=== PATIENT | male | born 1935 | race Caucasian/White ===

== ENCOUNTER 2016-05-13 10:07 | Outpatient (RCR) | payer MEDICARE, BC ==
[2016-05-13] VITALS (9 sets, daily range): BP systolic 100–122; BP diastolic 43–66; PULSE 70–85; TEMP 97.4–98.5
[~2016-05-13 10:07] MED LIST: ARICEPT 5MG PO; ASPIRIN 81M81 MG/TA2 PO; CELEXA 20MG20 MG/TAB PO; DITROPAN 5MG TAB5 MG PO; MUCINEX D 600 M1 TER PO; MULTIPLE VITAMI1 CAP PO; MVI; NATURAL L-LYSI500 MG PO; NEXIUM 20MG20 MG PO; OSCAL 500 TAB500 MG PO; SAW PALMETTO 101 SGL PO; [UNRECOGNIZED DRUG - REMARK]; [UNRECOGNIZED DRUG - REMARK]; cholesterol meds
[2016-05-13 11:17] LABS: HEMATOCRIT 20.6 % (42.0-52.0); HEMOGLOBIN 6.8 g/dl (13.5-18.0)
== END 2016-05-13 16:07 | disposition home or self-care (01) ==
LOC: EUO 10:07
PROVIDERS: Internal Medicine
DX: C82.21 Follicular lymphoma grade III, unspecified, lymph nodes of head, face, and neck (principal)
CPT/HCPCS: J7050; P9016

== ENCOUNTER 2016-05-31 20:32 | Observation (INO) | payer MEDICARE, BC ==
[~2016-05-31] VITALS: Ht 152.4 cm; Wt 81.7 kg
[2016-05-31 21:20] LABS: MEAN CELL VOLUME 96 fl (80.0-100.0); MEAN CORPUSCULAR HGB CONC 34 g/dl (33.0-37.0); MEAN PLATELET VOLUME 9.6 fl (7.4-10.4); PLATELET COUNT 233 K/mm3 (130-400); REDCELL DISTRIBUTION WIDTH-CV 23.5 % (11.5-14.5); RETIC % 1.9 % (0.5-3.52); WHITE BLOOD COUNT 5.8 K/mm3 (4.8-10.8)
[2016-05-31 21:27] LABS: ADJUSTED CALCIUM 9.4 mg/dL (8.4-10.2); ALBUMIN 3.6 gm/dL (3.5-5.0); BILIRUBIN,TOTAL 0.8 mg/dL (0.0-1.0); CALCIUM 9.1 mg/dL (8.4-10.2); CREATININE, serum 0.7 mg/dL (0.66-1.25); POTASSIUM 4.1 mmol/L (3.4-5.0); TOTAL PROTEIN 5.8 gm/dL (6.4-8.2)
[2016-05-31 21:29] LABS: PH 5 (5-8); URINE APPEARANCE Hazy; URINE BACTERIA Rare /hpf; URINE BILIRUBIN Negative (NEGATIVE); URINE BLOOD 1+ (NEGATIVE); URINE COLOR Yellow; URINE GLUCOSE Negative (NEGATIVE); URINE KETONE Trace (NEGATIVE); URINE UROBILINOGEN >=4.0 mg/dL (NEGATIVE)
[2016-05-31 21:30] LABS: HEMOGLOBIN 7.1 g/dl (13.5-18.0); MEAN CORPUSCULAR HEMOGLOBIN 32 pg (27.0-31.0)
[2016-05-31 22:10] LABS: ANISOCYTOSIS 2+; BAND 19 % (0-10); METAMYELOCYTE 5 % (0-0); MYELOCYTE 3 % (0-0); NEUTROPHILS 33 % (42.0-75.2); TOTAL CELLS COUNTED 100
[2016-05-31 22:11] LABS: HYPOCHROMIA 2+; OVALOCYTES 1+; POLYCHROMASIA 1+
[2016-05-31 22:12] LABS: PLATELET ESTIMATE NORMAL (NORMAL)
[2016-05-31 22:13] LABS: ADD PATHOLOGY DIFF REVIEW YES
[2016-05-31 23:27] VITALS: BP 121/56; PULSE 77; TEMP 97.5
[2016-06-01] VITALS (11 sets, daily range): BP systolic 103–125; BP diastolic 28–75; PULSE 67–78; TEMP 79.8–98.3
[2016-06-01 08:45] LABS: PATHOLOGY DIFF REVIEW OK
[2016-06-01 09:28] LABS: MEAN CELL VOLUME 96 fl (80.0-100.0); MEAN CORPUSCULAR HGB CONC 33 g/dl (33.0-37.0); MEAN PLATELET VOLUME 9.3 fl (7.4-10.4); PLATELET COUNT 207 K/mm3 (130-400); RED BLOOD COUNT 2.94 M/mm3 (4.20-5.60); REDCELL DISTRIBUTION WIDTH-CV 21.6 % (11.5-14.5); WHITE BLOOD COUNT 5.9 K/mm3 (4.8-10.8)
[2016-06-01 09:34] LABS: ADD PATHOLOGY DIFF REVIEW NO; HEMATOCRIT 28.2 % (42.0-52.0); HEMOGLOBIN 9.4 g/dl (13.5-18.0); MEAN CORPUSCULAR HEMOGLOBIN 32 pg (27.0-31.0)
[2016-06-01 10:09] LABS: ANISOCYTOSIS 2+; BAND 8 % (0-10); BASOPHIL 1 % (0-2); EOSINOPHIL 2 % (0-4); METAMYELOCYTE 1 % (0-0); NEUTROPHILS 44 % (42.0-75.2); OVALOCYTES 1+; PLATELET ESTIMATE NORMAL (NORMAL); TOTAL CELLS COUNTED 100
[2016-06-01] MEDS ORDERED: CEFTIN500 MG PO (12:38)
== END 2016-06-01 14:18 | disposition home or self-care (01) ==
LOC: COL.ER 20:32 → MEDICAL 22:13
PROVIDERS: Family Medicine; Nurse Practitioner Family
DX: D64.89 Other specified anemias (principal); N39.0 Urinary tract infection, site not specified; B96.4 Proteus (mirabilis) (morganii) as the cause of diseases classified elsewhere; G31.83 Neurocognitive disorder with Lewy bodies; F02.80 Dementia in other diseases classified elsewhere, unspecified severity, without behavioral disturbance, psychotic disturbance, mood disturbance, and anxiety; R53.81 Other malaise; G47.33 Obstructive sleep apnea (adult) (pediatric); K21.9 Gastro-esophageal reflux disease without esophagitis; E78.5 Hyperlipidemia, unspecified; Z85.72 Personal history of non-Hodgkin lymphomas
CPT/HCPCS: G0378; G8978-GP; G8979-GP; J0696; J7030; P9016

== ENCOUNTER 2016-06-18 11:33 | Outpatient (RCR) | payer MEDICARE, BC ==
[~2016-06-18] VITALS: Ht 152.4 cm; Wt 77.3 kg
[2016-06-18] VITALS (11 sets, daily range): BP systolic 99–131; BP diastolic 56–84; PULSE 69–85; TEMP 97.2–98
[~2016-06-18 11:33] MED LIST changes: +CEFTIN500 MG PO
[2016-06-18 12:23] LABS: HEMATOCRIT 23.3 % (42.0-52.0); HEMOGLOBIN 7.8 g/dl (13.5-18.0)
[2016-06-19] MEDS ORDERED: AMOXICILLIN 8751 TAB PO (19:07)
== END 2016-06-18 17:41 | disposition home or self-care (01) ==
LOC: EUO 11:33
PROVIDERS: Internal Medicine
DX: C82.21 Follicular lymphoma grade III, unspecified, lymph nodes of head, face, and neck (principal)
CPT/HCPCS: J7050; P9016

== ENCOUNTER 2016-06-19 17:36 | Emergency (ER) | payer MEDICARE, BC ==
[~2016-06-19] VITALS: Ht 177.8 cm; Wt 84.1 kg
[2016-06-19 17:40] VITALS: TEMP 98.4
[2016-06-19 18:31] LABS: ADD PATHOLOGY DIFF REVIEW NO
[2016-06-19 18:38] LABS: INR 1.2 (0.8-3.0); PROTHROMBIN TIME 13.4 SECONDS (9.7-12.8)
[2016-06-19 18:39] LABS: HEMATOCRIT 26.5 % (42.0-52.0); HEMOGLOBIN 9.2 g/dl (13.5-18.0); MEAN CELL VOLUME 92 fl (80.0-100.0); MEAN CORPUSCULAR HEMOGLOBIN 32 pg (27.0-31.0); MEAN CORPUSCULAR HGB CONC 35 g/dl (33.0-37.0); MEAN PLATELET VOLUME 9.3 fl (7.4-10.4); PLATELET COUNT 218 K/mm3 (130-400); RED BLOOD COUNT 2.89 M/mm3 (4.20-5.60); WHITE BLOOD COUNT 4.5 K/mm3 (4.8-10.8)
[2016-06-19 18:46] LABS: ADJUSTED CALCIUM 9.6 mg/dL (8.4-10.2); ALANINE AMINOTRANSFERASE 68 U/L (21-72); ALBUMIN 3.4 gm/dL (3.5-5.0); ALKALINE PHOSPHATASE 118 U/L (50-136); ANION GAP 9 mmol/L (7-16); BILIRUBIN,TOTAL 0.8 mg/dL (0.0-1.0); BLOOD UREA NITROGEN 19 mg/dL (9-20); CALCIUM 9.1 mg/dL (8.4-10.2); CARBON DIOXIDE 28 mmol/L (22-30); CHLORIDE 101 mmol/L (98-107); CREATININE, serum 0.57 mg/dL (0.66-1.25); GLUCOSE 86 mg/dL (74-106); POTASSIUM 4.4 mmol/L (3.4-5.0); SODIUM 138 mmol/L (137-145); TOTAL PROTEIN 5.8 gm/dL (6.4-8.2)
[2016-06-19 18:48] LABS: PH 6 (5-8); SQUAMOUS EPITHELIAL 0-2 /hpf; URINE APPEARANCE Clear; URINE BACTERIA Rare /hpf; URINE BILIRUBIN Negative (NEGATIVE); URINE BLOOD Negative (NEGATIVE); URINE COLOR Yellow; URINE GLUCOSE Negative (NEGATIVE); URINE KETONE Trace (NEGATIVE); URINE RBC 0-2 /hpf; URINE UROBILINOGEN >=4.0 mg/dL (NEGATIVE)
[2016-06-19 18:50] LABS: ANISOCYTOSIS 2+; BAND 15 % (0-10); EOSINOPHIL 3 % (0-4); METAMYELOCYTE 1 % (0-0); NEUTROPHILS 30 % (42.0-75.2); PLATELET ESTIMATE NORMAL (NORMAL); POIKILOCYTOSIS 1+; TOTAL CELLS COUNTED 100
[2016-06-19 19:03] LABS: TROPONIN-I < 0.012 ng/mL (0.000-0.034)
[2016-06-19] MEDS ORDERED: AMOXICILLIN 8751 TAB PO (19:07)
[2016-06-19 19:15] VITALS: BP 114/77; PULSE 66
== END 2016-06-19 19:30 | disposition home or self-care (01) ==
LOC: COL.ER 17:36 → MEDICAL 18:17 → COL.ER 18:17
PROVIDERS: Family Medicine
DX: J32.0 Chronic maxillary sinusitis (principal); Z85.72 Personal history of non-Hodgkin lymphomas; D64.9 Anemia, unspecified

== ENCOUNTER 2016-08-12 10:20 | Outpatient (RCR) | payer MEDICARE, BC ==
[2016-07-09] VITALS (10 sets, daily range): BP systolic 90–121; BP diastolic 48–62; PULSE 61–91; TEMP 97.3–98.1
[2016-07-09 14:37] LABS: HEMATOCRIT 21.8 % (42.0-52.0); HEMOGLOBIN 7.2 g/dl (13.5-18.0)
[~2016-08-12] VITALS: Ht 177.8 cm; Wt 85.0 kg
[2016-08-12] VITALS (10 sets, daily range): BP systolic 103–136; BP diastolic 42–77; PULSE 66–127; TEMP 97.7–98.4
[~2016-08-12 10:20] MED LIST changes: +AMOXICILLIN 8751 TAB PO
[2016-08-12 10:38] LABS: HEMOGLOBIN 6.9 g/dl (13.5-18.0)
== END 2016-08-12 17:36 | disposition still patient (30) ==
LOC: EUO 10:20
PROVIDERS: Internal Medicine
DX: C82.21 Follicular lymphoma grade III, unspecified, lymph nodes of head, face, and neck (principal); C91.Z0 Other lymphoid leukemia not having achieved remission
CPT/HCPCS: J7050; P9016

== ENCOUNTER 2016-11-19 13:30 | Outpatient (RCR) | payer MEDICARE, BC ==
[2016-09-08 13:48] LABS: MEAN CELL VOLUME 102 fl (80.0-100.0); MEAN CORPUSCULAR HGB CONC 34 g/dl (33.0-37.0); MEAN PLATELET VOLUME 9.7 fl (7.4-10.4); PLATELET COUNT 176 K/mm3 (130-400); RED BLOOD COUNT 2.33 M/mm3 (4.20-5.60); REDCELL DISTRIBUTION WIDTH-CV 26.1 % (11.5-14.5); WHITE BLOOD COUNT 4.2 K/mm3 (4.8-10.8)
[2016-09-08 13:49] LABS: HEMATOCRIT 23.8 % (42.0-52.0); MEAN CORPUSCULAR HEMOGLOBIN 34 pg (27.0-31.0)
[2016-09-09] VITALS (9 sets, daily range): BP systolic 100–123; BP diastolic 47–93; PULSE 72–91; TEMP 97.4–98.1
[2016-10-29 14:06] VITALS: BP 98/48; PULSE 74; TEMP 98.2
[2016-10-29 15:30] VITALS: BP 103/49; PULSE 73; TEMP 98.2
[2016-10-29 15:45] VITALS: BP 110/48; PULSE 77; TEMP 98.2
[2016-10-29 16:15] VITALS: BP 105/52; PULSE 84; TEMP 98.2
[2016-10-29 17:15] VITALS: BP 102/74; PULSE 70; TEMP 97.7
[2016-10-29 17:29] VITALS: BP 91/46; PULSE 84; TEMP 98.4
[2016-11-18 17:46] VITALS: BP 112/50; PULSE 84; TEMP 98.5
[2016-11-18 18:00] VITALS: BP 120/62; PULSE 74; TEMP 99.1
[2016-11-18 18:15] VITALS: BP 123/68; PULSE 72; TEMP 98.8
[2016-11-18 18:45] VITALS: BP 123/63; PULSE 72; TEMP 98.5
[2016-11-18 19:41] VITALS: BP 123/86; PULSE 69; TEMP 98.5
[2016-11-19 14:42] VITALS: BP 95/58; PULSE 85; TEMP 98.3
[2016-11-19 15:05] VITALS: BP 109/59; PULSE 90; TEMP 98.5
[2016-11-19 15:20] VITALS: BP 108/68; PULSE 84; TEMP 98.3
[2016-11-19 15:50] VITALS: BP 101/55; PULSE 87; TEMP 98.4
[2016-11-19 16:33] VITALS: BP 112/60; PULSE 85; TEMP 98.5
== END 2016-12-07 | disposition still patient (30) ==
LOC: EUO
PROVIDERS: Internal Medicine
DX: C85.90 Non-Hodgkin lymphoma, unspecified, unspecified site (principal); Z79.899 Other long term (current) drug therapy
CPT/HCPCS: J7050; P9016

== ENCOUNTER 2016-12-10 13:07 | Outpatient (RCR) | payer MEDICARE, BC ==
[2016-12-10 14:09] VITALS: BP 104/54; PULSE 75; TEMP 97.7
[2016-12-10 14:30] VITALS: BP 100/49; PULSE 74; TEMP 97.5
[2016-12-10 14:45] VITALS: BP 122/57; PULSE 80; TEMP 97.9
[2016-12-10 15:15] VITALS: BP 101/50; PULSE 69; TEMP 97.3
[2016-12-10 16:12] VITALS: BP 114/45; PULSE 78; TEMP 97.3
[2016-12-13] MEDS ORDERED: FOLIC ACID 11 MG/TA1 PO (03:45)
== END 2016-12-19 18:38 | disposition home or self-care (01) ==
LOC: EUO 13:07
DX: C95.90 Leukemia, unspecified not having achieved remission (principal); Z79.899 Other long term (current) drug therapy
CPT/HCPCS: J7050; P9040

== ENCOUNTER 2016-12-13 03:35 | Emergency (ER) | payer MEDICARE, BC ==
[~2016-12-13] VITALS: Ht 152.4 cm; Wt 65.9 kg
[2016-12-13 03:37] VITALS: TEMP 98.4
[2016-12-13] MEDS ORDERED: FOLIC ACID 11 MG/TA1 PO (03:45)
[2016-12-13 05:01] VITALS: BP 104/63; PULSE 73
== END 2016-12-13 05:05 | disposition home or self-care (01) ==
LOC: COL.ER 03:35
DX: R51 Headache (principal); G31.83 Neurocognitive disorder with Lewy bodies; F02.80 Dementia in other diseases classified elsewhere, unspecified severity, without behavioral disturbance, psychotic disturbance, mood disturbance, and anxiety; Z85.72 Personal history of non-Hodgkin lymphomas
CPT/HCPCS: J1885

== ENCOUNTER 2016-12-18 19:59 | Outpatient (CLI) | payer MEDICARE, BC ==
[~2016-12-18 19:59] MED LIST changes: +FOLIC ACID 11 MG/TA1 PO
[2016-12-18 20:38] LABS: MEAN CELL VOLUME 105 fl (80.0-100.0); MEAN CORPUSCULAR HGB CONC 34 g/dl (33.0-37.0); MEAN PLATELET VOLUME 9.2 fl (7.4-10.4); PLATELET COUNT 178 K/mm3 (130-400); RED BLOOD COUNT 2.15 M/mm3 (4.20-5.60); REDCELL DISTRIBUTION WIDTH-CV 24.7 % (11.5-14.5); WHITE BLOOD COUNT 4.5 K/mm3 (4.8-10.8)
[2016-12-18 20:41] LABS: HEMATOCRIT 22.6 % (42.0-52.0); HEMOGLOBIN 7.7 g/dl (13.5-18.0); MEAN CORPUSCULAR HEMOGLOBIN 36 pg (27.0-31.0)
[2016-12-19] VITALS (11 sets, daily range): BP systolic 97–135; BP diastolic 44–68; PULSE 75–87; TEMP 97.3–98.8
== END 2016-12-19 18:33 | disposition home or self-care (01) ==
LOC: COL.LAB 19:59 → SURG 12-19 12:12 → COL.LAB 12-19 18:33
PROVIDERS: Internal Medicine Medical Oncology
DX: D64.9 Anemia, unspecified (principal)
CPT/HCPCS: OP; P9040

== ENCOUNTER 2017-01-07 13:00 | Outpatient (RCR) | payer MEDICARE, BC ==
[2017-01-07] VITALS (9 sets, daily range): BP systolic 108–132; BP diastolic 44–101; PULSE 64–90; TEMP 97.2–98.4
== END 2017-01-07 18:27 | disposition home or self-care (01) ==
LOC: EUO 13:00 → EDSTATUS 13:00 → EUO 18:27
DX: C85.90 Non-Hodgkin lymphoma, unspecified, unspecified site (principal)
CPT/HCPCS: J7050; P9040

== ENCOUNTER 2017-01-26 10:38 | Outpatient (RCR) | payer MEDICARE, BC ==
[~2017-01-26] VITALS: Ht 152.4 cm; Wt 63.6 kg
[2017-01-26] VITALS (9 sets, daily range): BP systolic 103–137; BP diastolic 55–87; PULSE 67–84; TEMP 97.4–98.4
== END 2017-01-26 18:15 | disposition home or self-care (01) ==
LOC: EUO 10:38
DX: C91.Z0 Other lymphoid leukemia not having achieved remission (principal); C82.21 Follicular lymphoma grade III, unspecified, lymph nodes of head, face, and neck
CPT/HCPCS: J7050; P9016

== ENCOUNTER → 2017-02-25 | Outpatient (CLI) | payer MEDICARE, BC | LOC: COL.LAB 09:27 | DX: Z01.89 Encounter for other specified special examinations (principal) ==

== ENCOUNTER 2017-03-18 13:00 | Outpatient (RCR) | payer MEDICARE, BC ==
[2017-02-19 13:45] VITALS: BP 134/55; PULSE 104; TEMP 97.8
[2017-02-25] VITALS (8 sets, daily range): BP systolic 106–126; BP diastolic 55–84; PULSE 68–77; TEMP 97–98.3
[~2017-03-18] VITALS: Ht 152.4 cm; Wt 86.9 kg
[2017-03-18] VITALS (8 sets, daily range): BP systolic 110–143; BP diastolic 41–97; PULSE 77–94; TEMP 98.1–98.7
[~2017-03-18 13:00] MED LIST changes: +LYCOPENE10 M2 PO; +MILLIPRED5 MG PO; -MULTIPLE VITAMI1 CAP PO; +MULTIPLE VITAMI1 TA5 PO
== END 2017-03-18 19:33 | disposition home or self-care (01) ==
LOC: EUO 13:00
DX: C82.21 Follicular lymphoma grade III, unspecified, lymph nodes of head, face, and neck (principal); C91.Z0 Other lymphoid leukemia not having achieved remission
CPT/HCPCS: J7050; P9016

== ENCOUNTER 2017-04-01 09:50 | Outpatient (RCR) | payer MEDICARE, BC ==
[2017-04-01] VITALS (8 sets, daily range): BP systolic 101–137; BP diastolic 48–57; PULSE 50–89; TEMP 97.6–98.8
== END 2017-04-01 17:54 | disposition home or self-care (01) ==
LOC: EUO 09:50
DX: C82.21 Follicular lymphoma grade III, unspecified, lymph nodes of head, face, and neck (principal)
CPT/HCPCS: J7050; P9016

== ENCOUNTER 2017-04-13 09:40 | Outpatient (RCR) | payer MEDICARE, BC ==
[~2017-04-13] VITALS: Ht 152.4 cm; Wt 66.8 kg
[2017-04-13] VITALS (8 sets, daily range): BP systolic 123–139; BP diastolic 62–66; PULSE 71–79; TEMP 97.2–98
== END 2017-04-13 14:28 | disposition home or self-care (01) ==
LOC: EUO 09:40 → EDSTATUS 10:00 → EUO 14:28
DX: C82.21 Follicular lymphoma grade III, unspecified, lymph nodes of head, face, and neck (principal)
CPT/HCPCS: J7050; P9016

== ENCOUNTER 2017-04-30 12:00 | Outpatient (RCR) | payer MEDICARE, BC ==
[2017-04-28 17:35] LABS: MEAN CELL VOLUME 86 fl (80.0-100.0); MEAN CORPUSCULAR HGB CONC 34 g/dl (33.0-37.0); MEAN PLATELET VOLUME 9.7 fl (7.4-10.4); PLATELET COUNT 293 K/mm3 (130-400); RED BLOOD COUNT 2.42 M/mm3 (4.20-5.60); REDCELL DISTRIBUTION WIDTH-CV 15.1 % (11.5-14.5)
[2017-04-28 17:44] LABS: ALBUMIN 4.1 gm/dL (3.5-5.0); BILIRUBIN,TOTAL 0.7 mg/dL (0.0-1.0); CALCIUM 9.7 mg/dL (8.4-10.2); CREATININE, serum 0.78 mg/dL (0.66-1.25); HEMATOCRIT 20.7 % (42.0-52.0); MEAN CORPUSCULAR HEMOGLOBIN 29 pg (27.0-31.0); POTASSIUM 4.2 mmol/L (3.4-5.0); TOTAL PROTEIN 6.7 gm/dL (6.4-8.2)
[2017-04-28 17:54] LABS: BAND 9 % (0-10); LYMPHOCYTE 33 % (20.0-51.0); NEUTROPHILS 47 % (42.0-75.2); PLATELET ESTIMATE NORMAL (NORMAL); ROULEAUX 1+
== END 2017-07-27 | disposition home or self-care (01) ==
LOC: EUO → EDSTATUS 12:00
PROVIDERS: Internal Medicine
DX: C85.90 Non-Hodgkin lymphoma, unspecified, unspecified site (principal)